=== PATIENT | male | born 1980 | race African-American/Black ===

== ENCOUNTER 2017-06-11 11:23 | Emergency (ER) ==
[2017-06-11 11:28] VITALS: BP 149/93; TEMP 96.7; BMI 23.5
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
== END 2017-06-11 12:35 | disposition home or self-care (01) ==
LOC: ED 11:23
DX: M54.5 Low back pain (principal); V89.2XXA Person injured in unspecified motor-vehicle accident, traffic, initial encounter; F17.210 Nicotine dependence, cigarettes, uncomplicated
CPT/HCPCS: 99282